=== PATIENT | female | born 1995 | race Caucasian/White ===

== ENCOUNTER 2018-05-31 10:24 | Inpatient (IN) | payer MEDICAID ==
[2018-05-31] MEDS ORDERED: RINGERS SOLUTION,LACTATED 1,000 ML IV PRN (10:40)
[2018-05-31] MEDS ORDERED: MISOPROSTOL 0.2 MG TABLET ONE (10:50)
[2018-05-31] MEDS ORDERED: OXYTOCIN/NORMAL SALINE 20 UNIT/1,000 ML RTUINJ ONE (10:50)
[2018-05-31] MEDS ORDERED: LIDOCAINE 1% INJ-PF (10 MG/ML) 30 ML SDV ONE (10:50)
[2018-05-31] MEDS ORDERED: LIDOCAINE 2% JELLY 5 ML TUBE ONE (12:06)
[2018-05-31 12:38] LABS: APPEARANCE,URINE CLOUDY; BILIRUBIN,URINE NEGATIVE (NEGATIVE); COLOR,URINE YELLOW; GLUCOSE, URINE NEGATIVE (NEGATIVE); KETONES,URINE NEGATIVE (NEGATIVE); LEUKOCYTE ESTERASE,URINE LARGE (NEGATIVE); NITRITE,URINE NEGATIVE (NEGATIVE); PROTEIN,URINE 30 mg/dL (NEGATIVE); UROBILINOGEN,URINE NEGATIVE mg/dL (<2.0)
[2018-05-31] MEDS ORDERED: IBUPROFEN 800 MG TABLET ONE (12:40)
[2018-05-31] MEDS ORDERED: BENZOCAINE/MENTHOL AEROSOL SPRAY 56 ML ONE (12:40)
[2018-05-31] MEDS ORDERED: ACETAMINOPHEN WITH CODEINE #3 TABLET ONE (12:40)
[2018-05-31 12:43] LABS: URINE SPECIFIC GRAVITY 1.008
[2018-05-31] MEDS ORDERED: NA PHOS,M-B/NA PHOS,DI-BA (ADULT) 133 ML ENEMA PR PRN (12:44)
[2018-05-31] MEDS ORDERED: GLYCERIN/WITCH HAZEL LEAF 1 EACH MED..PAD TP PRN (12:44)
[2018-05-31] MEDS ORDERED: DIPHENHYDRAMINE HCL 25 MG CAPSULE PO PRN (12:44)
[2018-05-31] MEDS ORDERED: PROMETHAZINE HCL 25 MG SUPP.RECT PR PRN (12:44)
[2018-05-31] MEDS ORDERED: OXYTOCIN/NORMAL SALINE 20 UNIT/1,000 ML RTUINJ IV PRN (12:44)
[2018-05-31] MEDS ORDERED: ACETAMINOPHEN WITH CODEINE #3 TABLET PO PRN (12:44)
[2018-05-31] MEDS ORDERED: DIPH/PERTUSS(ACELL)/TETANUS VAC/PF 0.5 ML SYR (>=10YO) IM PRN (12:44)
[2018-05-31] MEDS ORDERED: DIBUCAINE 1% OINTMENT 28 GM TP PRN (12:44)
[2018-05-31] MEDS ORDERED: ZOLPIDEM TARTRATE 5 MG TABLET PO PRN (12:44)
[2018-05-31] MEDS ORDERED: MEASLES,MUMPS&RUBELLA VACC/PF 0.5 ML VIAL SUBCUT PRN (12:44)
[2018-05-31] MEDS ORDERED: PROMETHAZINE HCL INJ 25 MG/1 ML VIAL IV PRN (12:44)
[2018-05-31] MEDS ORDERED: PSEUDOEPHEDRINE HCL 30 MG TABLET PO PRN (12:44)
[2018-05-31] MEDS ORDERED: BENZOCAINE/MENTHOL AEROSOL SPRAY 56 ML TOP PRN (12:44)
[2018-05-31] MEDS ORDERED: ACETAMINOPHEN 650 MG SUPP.RECT PR PRN (12:44)
[2018-05-31] MEDS ORDERED: PROMETHAZINE HCL 25 MG TABLET PO PRN (12:44)
[2018-05-31] MEDS ORDERED: MAGNESIUM HYDROXIDE SUSP 30 ML UDCUP PO PRN (12:44)
[2018-05-31] MEDS: ACETAMINOPHEN WITH CODEINE #3 TABLET PO PRN ×2 (12:52→19:41)
[2018-05-31 13:00] LABS: URINE AMPHETAMINES SCREEN NEGATIVE; URINE BARBITURATES SCREEN NEGATIVE; URINE BENZODIAZEPINES SCREEN NEGATIVE; URINE COCAINE SCREEN NEGATIVE; URINE MARIJUANA (THC) SCREEN NEGATIVE; URINE METHADONE SCREEN NEGATIVE; URINE PHENCYCLIDINE SCREEN NEGATIVE
--- NOTE | 2018-05-31 13:07 | Admission Physical ---
Datetime Report Generated by CPN: 05/31/2018 13:06 CURRENT ADMISSION Chief Complaint: Uterine Contractions Indication for Induction: Not Applicable Admit Impression : Term, Intrauterine Admit Plan: Admit to Unit; Initiate Labor Protocol ALLERGIES Medication Allergies: No Medication Allergies: No Known Allergies (05/31/2018) Latex: No Latex Allergies OBSTETRICAL HISTORY EDC: 06/16/2018 00:00 : 3 Para: 2 Term: 2 Livin Gestational Diabetes: No Rh Sensitization: No Incompetent Cervix: No TITO: No Infertility: No ART Treatment: No Uterine Anomaly: No IUGR: No Hx Previous C/S: No Macrosomia: No Hx Loss/Stillborn: No PIH: No Hx : No Placenta Previa/Abruption: No Depression/PP Depression: No PTL/PROM: No Post Hemorrhage: No Current Procedures: Ultrasound Obstetrical History Comments: G1- 2013 baby girl G2- 2014 baby girl shoulder dystocia G3- current SEE RECORDS Alcohol: No Marijuana : No Cocaine: No Other Illicit Drugs: No Cigarettes: Never Smoker. [id number] MEDICAL HISTORY Diabetes: No Blood Transfusion: No Pulmonary Disease (Asthma, TB): No Breast Disease: No Hypertension: No Project Development Director Surgery: No Heart Disease: No Hosp/Surgery: Yes Autoimmune Disorder: No Anesthetic Complications: No Kidney Disease: No Abnormal Pap Smear: No Neuro/Epilepsy: No Psychiatric Disorders: Yes Other Medical Diseases: Yes Hepatitis/Liver Disease: No Significant Family History: No Varicosities/Phlebitis: No Trauma/Violence : No Thyroid Dysfunction: No Medical History Comments: anxiety, depression- no meds, childbirth x2, colon polyps INFECTIOUS HISTORY Gonorrhea: No Genital Herpes: No Chlamydia: No Tuberculosis: No Syphilis: No Hepatitis: No HIV/AIDS Exposure: No Rash or Viral Illness: No HPV: No Infectious History Comments: pt denies infectious history PHYSICAL EXAM General: Normal HEENT: Normal Neurologic: Normal Thyroid: Deferred Heart: Normal Lungs: Normal Breast: Deferred Back: Normal Abdomen: Normal Genitourinary Exam: Normal Extremities: Normal DTRs: Deferred Pelvic Type: Adequate Vital Signs: Reviewed; Within Normal Limits VAGINAL EXAM Dilatation: 8 on admit Contraction Comments: q2mins MEMBRANES Membranes: Ruptured FETUS A EGA: 37.5 Monitoring: External US FHR- Baseline: 135 Variability: Moderate 6-25bpm Accelerations: 15X15 Decelerations: None FHR Category: Category I Estimated Weight (gm): 3200 Presentation: Vertex Admit Comment: with no PNC since March-was seen at [facility] until then. late to care at 17w. arrived 7-8 cm dilated. questionable hx of shoulder dystocia per pt and spouse before records recieved, c/s discussed and pt declined-shoulder dystocia not mentioned in records. hx depression not on meds PLANS FOR LABOR AND DELIVERY Labor and Delivery: None Pain Management: Epidural Feeding Preference: Breast Benefit of Breast Feed Discussed: Yes Circumcision: N/A INFORMED CONSENT Assignment: Bina Jose MD Signature: with User ID: [email or web address] : with User ID: [email or web address]
[2018-05-31 13:31] LABS: HEMATOCRIT 32.6 % (36.0-47.0); HEMOGLOBIN 11.2 g/dL (12.0-15.5); MEAN CORPUSCULAR HEMOGLOBIN 31.8 pg (27.0-33.4); MEAN CORPUSCULAR HGB CONC 34.3 g/dL (32.0-36.0); MEAN CORPUSCULAR VOLUME 93 fl (80-97); PLATELET COUNT 230 10^3/uL (150-450); RED BLOOD COUNT 3.52 10^6/uL (3.72-5.28); RED CELL DISTRIBUTION WIDTH 13.3 % (11.5-14.0); WHITE BLOOD COUNT 20.2 10^3/uL (4.0-10.5)
[2018-05-31] MEDS ORDERED: MISOPROSTOL 0.2 MG TABLET PO ONE (13:45)
[2018-05-31 13:52] LABS: ABSOLUTE LYMPHOCYTES# (MANUAL) 1.4 10^3/uL (0.5-4.7); ABSOLUTE NEUTROPHILS# (MANUAL) 17.8 10^3/uL (1.7-8.2); BAND NEUTROPHILS % (MANUAL) 1 % (3-5); BASOPHILS % (MANUAL) 0 % (0-2); EOSINOPHILS % (MANUAL) 0 % (0-6); LYMPHOCYTES % (MANUAL) 7 % (13-45); MONOCYTES % (MANUAL) 5 % (3-13); PLATELET COMMENT ADEQUATE; SEGMENTED NEUTROPHILS % (MAN) 87 % (42-78); TOTAL CELLS COUNTED 100
[2018-05-31 13:54] LABS: PLATELET LARGE PRESENT; RBC MORPHOLOGY COMMENT NORMO-CYTIC/CHROMIC
[2018-05-31 14:30] LABS: RUBELLA INTERPRETATION POSITIVE
--- NOTE | 2018-05-31 15:26 | Delivery Summary ---
Del Sum A-C Datetime Report Generated by CPN: 05/31/2018 15:26 DELIVERY PERSONNEL DELIVERY PERSONNEL: [id number] Delivery Doctor:: Jeniffer Piedra CNM Labor and Delivery Nurse:: Garima Arriaga RNawning frame maker Nurse:: Armida Jose RN Nursery Nurse:: Austin Evans RN Supervisor Riprap Placing/NIGHT CUSTODIAN: Sylvia Alvarez, ST MATERNAL INFORMATION Delivery Anesthesia: None Medications After Delivery: Pitocin Bolus-Please Comment Meds After Delivery Comment: Pitocin 20 units in 1 L NS bolusing per order Maternal Complications: Precipitous Labor (<3hrs) Provider Comments: LONG VIABLE FEMALE WITH SPONTANEOUS CRY. NURSERY RN PRESENT D/T NO PNC. CORD DOUBLE CLAMPED AND CUT. SPONTANEOUS PLACENTA INTACT WITH 3VC. NO LACERATIONS. MOTHER AND INFANT STABLE IN L_D #5 LABOR SUMMARY EDC: 06/16/2018 00:00 No. Babies in Womb: 1 Attempted: No Labor Anesthesia: None LABOR INFORMATION Reason for Induction: Not Applicable Onset of Labor: 05/31/2018 08:00 Complete Dilatation: 05/31/2018 11:03 Oxytocin: N/A Group B Beta Strep: Unknown Antibiotics # of Doses: 0 Antibiotics Time of Last Dose: n/a Name of Antibiotic Given: n/a Steroids Given: None Reason Steroids Not Administered: Not Applicable MEMBRANES Membranes Rupture Method: Artificial Rupture of Membranes: 05/31/2018 11:12 Length of Rupture (hr): 1.18 Amniotic Fluid Color: Clear Amniotic Fluid Amount: Moderate Amniotic Fluid Odor: None STAGES OF LABOR Stage 1 hr: 3 Stage 1 min: 3 Stage 2 hr: 1 Stage 2 min: 20 Stage 3 hr: 0 Stage 3 min: 8 Total Time in Labor hr: 4 Total Time in Labor min: 31 VAGINAL DELIVERY Episiotomy: None Laceration #1: None Laceration Extension #1: N/A Sponge Count Correct: N/A Sharps Count Correct: N/A CSECTION DELIVERY Primary Indication: N/A Secondary Indication: N/A CSection Incidence: N/A Labor: N/A Elective: N/A CSection Incision: N/A BABY A INFORMATION Delivery Date/Time: 05/31/2018 12:23 Method of Delivery: Vaginal Born in Route : No : N/A Forceps: N/A Vacuum Extraction: N/A Shoulder Dystocia : No PRESENTATION/POSITION BABY A Presentation: Cephalic Cephalic Presentation: Vertex Vertex Position: Right Occipital Anterior Breech Presentation: N/A PLACENTA INFORMATION BABY A Placenta Delivery Time : 05/31/2018 12:31 Placenta Method of Delivery: Spontaneous Placenta Status: Delivered SCORES BABY A Heart Rate 1 min: >100 bpm Resp Effort 1 min: Slow, Irregular Reflex Irritability 1 min: Cough or Sneeze or Pulls Away Muscle Tone 1 min: Active Motion Color 1 min: Blue/Pale Resuscitation Effort 1 min: Tactile Stimulation SCORE 1 MIN: 7 Heart Rate 5 min: >100 bpm Resp Effort 5 min: Good Cry Reflex Irritability 5 min: Cough or Sneeze or Pulls Away Muscle Tone 5 min: Active Motion Color 5 min: Body [place], Extremities Blue Resuscitation Effort 5 min: Tactile Stimulation SCORE 5 MIN: 9 INFORMATION BABY A Gestational Age at Delivery: 37.5 Gestational Status: Early Term- 37- 38.6 Weeks Outcome : Liveborn Condition : Stable Sex: Female IDENTIFICATION BABY A Infant Verification Date/Time: 05/31/2018 12:37 ID Band Number: [id number] Mother's Name Verified: Yes RN Verifying Infant: Sadaf [place] [facility] Additional Verifying Personnel: Garima Arriaga RN WEIGHT/LENGTH BABY A Birthweight (gm): 3020 Infant Weight (lb): 6 Weight (oz): 11 Infant Length (in): 18.00 Infant Length (cm): 45.72 CORD INFORMATION BABY A No. Cord Vessels: 3 Nuchal Cord : N/A Cord Blood Taken: Yes-For Eval (Mom's Blood Type - or O+) Suction: Mouth; Nose ASSESSMENT BABY A Infant Complications: None Physical Findings at Delivery: Caput Succedaneum Respirations: Appears Normal Skin to Skin: Yes Skin to Skin Time (min): 60 Shale Miner/ALS Called : No Infant Care By: Ezequiel Nathan, RN Transferred To: Remains with Mother BABY B INFORMATION : N/A SIGNATURES Assignment: Bina Jose MD Signature: with User ID: [email or web address] : with User ID: [email or web address] : I was personally available for consultation and serving as supervising physician for the MLP.
--- NOTE | 2018-05-31 15:26 | Warning Signs in Babies ---
VOD Warning Signs Datetime Report Generated by [facility]: 05/31/2018 15:26 VOD#[id number] -Warning Signs in Babies: Needs to be viewed. (05/31/2018 10:36:Garima Arriaga RN)
[2018-05-31] MEDS: IBUPROFEN 800 MG TABLET PO SCH ×2 (16:06→21:08)
[2018-05-31] MEDS: FERROUS SULFATE 325 MG TABLET PO SCH (17:39)
[2018-05-31] MEDS: DOCUSATE SODIUM 100 MG CAPSULE PO SCH (17:39)
[2018-05-31] MEDS: FAMOTIDINE 20 MG TABLET PO SCH (22:37)
[2018-06-01] MEDS: IBUPROFEN 800 MG TABLET PO SCH ×3 (05:52→21:53)
[2018-06-01 07:42] LABS: HEPATITIS C VIRUS AB <0.1 s/co ratio (0.0-0.9)
[2018-06-01 07:48] LABS: HEMATOCRIT 27.9 % (36.0-47.0); HEMOGLOBIN 9.5 g/dL (12.0-15.5); MEAN CORPUSCULAR HEMOGLOBIN 31.8 pg (27.0-33.4); MEAN CORPUSCULAR HGB CONC 34.3 g/dL (32.0-36.0); MEAN CORPUSCULAR VOLUME 93 fl (80-97); PLATELET COUNT 195 10^3/uL (150-450); RED CELL DISTRIBUTION WIDTH 13.5 % (11.5-14.0); WHITE BLOOD COUNT 14.6 10^3/uL (4.0-10.5)
[2018-06-01] MEDS: SENNOSIDES/DOCUSATE 8.6-50 MG 1 EACH TABLET PO SCH (10:26)
[2018-06-01] MEDS: FERROUS SULFATE 325 MG TABLET PO SCH ×2 (10:26→17:21)
[2018-06-01] MEDS: PRENATAL VITAMIN W DHA CAPSULE PO SCH (10:26)
[2018-06-01] MEDS: FAMOTIDINE 20 MG TABLET PO SCH ×2 (10:26→22:06)
[2018-06-01] MEDS: DOCUSATE SODIUM 100 MG CAPSULE PO SCH ×2 (10:26→17:21)
--- NOTE | 2018-06-01 12:14 | PDOC PROGRESS REPORT ---
Subjective-OB Progress Note for:: 06/01/18 Subjective: Pt doing well, no concerns. She reports light bleeding, reg diet and is voiding without difficulty. Physical Exam (OB) Vital Signs: Temp Pulse Resp BP Pulse Ox 97.8 F 54 L 16 103/53 L 98 06/01/18 07:59 06/01/18 07:59 06/01/18 07:59 06/01/18 07:59 06/01/18 07:59 Intake & Output 05/31/18 06/01/18 06/02/18 06:59 06:59 06:59 Intake Total 1000 300 Balance 1000 300 Weight 70.8 kg - Lochia Lochia Amount: Scant < 10 ml Lochia Color: Rubra/Red - Abdomen Description: Tender, Soft Hernia Present: No Fundal Description: Firm, Midline Fundal Height: u/u - u/2 Objective-Diagnostic Laboratory: 06/01/18 07:35 05/31/18 05/31/18 05/31/18 10:21 13:10 13:10 WBC 20.2 H RBC 3.52 L Hgb 11.2 L Hct 32.6 L MCV 93 MCH 31.8 MCHC 34.3 RDW 13.3 Plt Count 230 Seg Neutrophils % Not Reportable Lymphocytes % Not Reportable Monocytes % Not Reportable Eosinophils % Not Reportable Basophils % Not Reportable Absolute Neutrophils Not Reportable Absolute Lymphocytes Not Reportable Absolute Monocytes Not Reportable Absolute Eosinophils Not Reportable Absolute Basophils Not Reportable Urine Color YELLOW Urine Appearance CLOUDY Urine pH 8.0 Ur Specific Cullen 1.008 Urine Protein 30 H Urine Glucose (UA) NEGATIVE Urine Ketones NEGATIVE Urine Blood LARGE H Urine Nitrite NEGATIVE Ur Leukocyte Esterase LARGE H Blood Type O POSITIVE Antibody Screen NEGATIVE 06/01/18 07:35 WBC 14.6 H RBC 3.00 L Hgb 9.5 L Hct 27.9 L MCV 93 MCH 31.8 MCHC 34.3 RDW 13.5 Plt Count 195 Seg Neutrophils % Lymphocytes % Monocytes % Eosinophils % Basophils % Absolute Neutrophils Absolute Lymphocytes Absolute Monocytes Absolute Eosinophils Absolute Basophils Urine Color Urine Appearance Urine pH Ur Specific Cullen Urine Protein Urine Glucose (UA) Urine Ketones Urine Blood Urine Nitrite Ur Leukocyte Esterase Blood Type Antibody Screen Assessment and Plan(PN) - Assessment and Plan (1) Vaginal delivery Is this a current diagnosis for this admission?: Yes (2) Anemia due to acute blood loss Is this a current diagnosis for this admission?: Yes - Time Spent with Patient Time with patient: Less than 15 minutes Medications reviewed and adjusted accordingly: Yes - Disposition Anticipated Discharge: Home Within: within 24 hours
[2018-06-01 13:37] LABS: HEPATITS B SURFACE ANTIGEN Negative (Negative)
[2018-06-01] MEDS ORDERED: MEASLES,MUMPS&RUBELLA VACC/PF 0.5 ML VIAL SUBCUT PRN (15:30)
[2018-06-01] MEDS ORDERED: PROMETHAZINE HCL INJ 25 MG/1 ML VIAL IV PRN (15:30)
[2018-06-01] MEDS ORDERED: DIPH/PERTUSS(ACELL)/TETANUS VAC/PF 0.5 ML SYR (>=10YO) IM PRN (15:30)
[2018-06-02] MEDS: IBUPROFEN 800 MG TABLET PO SCH (06:14)
[2018-06-02 08:26] VITALS: BP 107/55
--- NOTE | 2018-06-02 09:03 | PDOC PROGRESS REPORT ---
Subjective-OB Progress Note for:: 06/02/18 Subjective: Doing well, hsb holding baby, no c/o Physical Exam (OB) Vital Signs: Temp Pulse Resp BP Pulse Ox 98.2 F 51 L 15 107/55 L 98 06/02/18 08:04 06/02/18 08:04 06/02/18 08:04 06/02/18 08:04 06/02/18 08:04 Intake & Output 06/01/18 06/02/18 06/03/18 06:59 06:59 06:59 Intake Total 1000 300 Balance 1000 300 Weight 70.8 kg - PIH/Pre-Eclampsia Clonus: Negative Headache: Absent Epigastric Pain: No Visual Changes: No - Lochia Lochia Amount: Small 10-25 ml Lochia Color: Rubra/Red - Abdomen Description: Soft, Round Hernia Present: No Fundal Description: Firm, Midline Fundal Height: u/u - u/2 Objective-Diagnostic Laboratory: 06/01/18 07:35 Assessment and Plan(PN) - Assessment and Plan (1) Vaginal delivery Is this a current diagnosis for this admission?: Yes (2) Anemia due to acute blood loss Is this a current diagnosis for this admission?: Yes - Time Spent with Patient Time with patient: Less than 15 minutes Medications reviewed and adjusted accordingly: Yes - Disposition Anticipated Discharge: Home Within: within 24 hours
--- NOTE | 2018-06-02 09:08 | PDOC DISCHARGE SUMMARY ---
Final Diagnosis Discharge Date: 06/02/18 - Final Diagnosis (1) Vaginal delivery Is this a current diagnosis for this admission?: Yes (2) Anemia due to acute blood loss Is this a current diagnosis for this admission?: Yes Discharge Data - Discharge Medication Prescriptions: Ferrous Sulfate [Feosol 325 mg Tablet] 325 mg PO BID #60 tablet Home Medications: Ferrous Sulfate [Feosol 325 mg Tablet] 325 mg PO BID #60 tablet 06/02/18 Vit/Dha [ Multi + Dha Capsule] 1 cap PO DAILY capsule Gestational Age: 37 Reason(s) for Admission: Onset of Labor Procedures: Ultrasound Intrapartum Procedure(s): Spontaneous Vaginal Delivery Complication(s): Hemorrhage-Uterine Atony - Diagnosis Test Laboratory: Temp Pulse Resp BP Pulse Ox 98.2 F 51 L 15 107/55 L 98 06/02/18 08:04 06/02/18 08:04 06/02/18 08:04 06/02/18 08:04 06/02/18 08:04 05/31/18 05/31/18 06/01/18 10:21 13:10 07:35 RBC 3.52 L 3.00 L Hgb 11.2 L 9.5 L Hct 32.6 L 27.9 L Urine Opiates Screen NEGATIVE - Discharge information/Instructions Discharge Activity: Activity As Tolerated, No Lifting Over 10 Pounds, No Lifting /Push/Pulling, Pelvic Rest Discharge Diet: As Tolerated, Regular Disposition: HOME, SELF-CARE Follow [facility] in: 2, Weeks
[2018-06-02] MEDS: FERROUS SULFATE 325 MG TABLET PO SCH (10:50)
[2018-06-02] MEDS: PRENATAL VITAMIN W DHA CAPSULE PO SCH (10:50)
[2018-06-02] MEDS: SENNOSIDES/DOCUSATE 8.6-50 MG 1 EACH TABLET PO SCH (10:50)
[2018-06-02] MEDS: DOCUSATE SODIUM 100 MG CAPSULE PO SCH (10:50)
[2018-06-02] MEDS: FAMOTIDINE 20 MG TABLET PO SCH (10:54)
== END 2018-06-02 12:59 | disposition home or self-care (01) | DRG 806 ==
LOC: LC 10:24 → LR 10:47 → 2S 15:26
PROVIDERS: ADMIT Obstetrics & Gynecology; ATTEND Obstetrics & Gynecology
PROC: 10E0XZZ Delivery of Products of Conception, External Approach (ICD-10-PCS; principal; 2018-05-31)
PROC: 4A1HXCZ Monitoring of Products of Conception, Cardiac Rate, External Approach (ICD-10-PCS; 2018-05-31)
DX: O62.3 Precipitate labor (principal); D62 Acute posthemorrhagic anemia; Z37.0 Single live birth; O72.1 Other immediate postpartum hemorrhage; O99.02 Anemia complicating childbirth; Z3A.37 37 weeks gestation of pregnancy
CPT/HCPCS: 36415; 80307; 81005; 85025; 85027; 86592; 86701; 86762; 86803; 86804; 86850; 86900; 86901; 87340; J2590; J3490